=== PATIENT | female | born 2000 ===

== ENCOUNTER 2021-10-25 23:52 | Inpatient (IN) ==
[2021-10-26] MEDS ORDERED: ONDANSETRON 4 MG/2 ML VIAL IV PRN (00:53)
[2021-10-26] MEDS: LACTATED RINGERS 1,000 ML IV SCH ×2 (01:16→13:18)
[2021-10-26 01:30] LABS: Basophils % 0.2 % (0.0-0.8); Eosinophils # 0.1 10*3/uL (0.0-0.87); Eosinophils % 0.5 % (0.00-10.9); Hematocrit 32.9 VOL% (35.7-47.0); Immature Granulocytes % 0.4 %; Immature Granulocytes Absolute 0.04 #; Lymphocytes # 2.5 10*3/uL (1.4-4.0); Lymphocytes % 27.3 % (21.3-54.2); Mean Corpuscular HGB Conc 30.4 GM/DL (32-36); Mean Corpuscular Volume 73.9 FL (87-102); Monocytes % 6.2 % (1.7-12.7); Neutrophils % 65.4 % (38.7-73.9); Platelet Count 213 T/CUMM (130-400); Red Blood Count 4.45 MC/CUMM (3.8-5.5); Red Cell Distribution Width 15.2 % (9.3-17.3); White Blood Count 9.3 T/CUMM (4-12)
[2021-10-26 01:50] LABS: Alanine Aminotransferase < 9 U/L (13-56); Albumin 2.8 G/DL (3.4-5.0); Alkaline Phosphatase 172 U/L (45-117); Aspartate Amino Transferase 13 U/L (0-37); Blood Urea Nitrogen 9 MG/DL (7-18); Calcium 9.1 MG/DL (8.5-10.1); Carbon Dioxide 20 MMOL/L (21-32); Estimated Glom Filtration Rate 137 ML/MIN; Glucose 84 MG/DL (74-106); Osmolality,Calculated 270.8 MOS/KG (273-304); Potassium 3.6 MMOL/L (3.5-5.1); Sodium 137 MMOL/L (136-145)
[2021-10-26 02:40] LABS: Hepatitis B Surface Ag Quant 0.13 Index; Hepatitis B Surface Ag Result Non-Reactive (NonReactive)
[2021-10-26 02:57] LABS: HIV Antigen/Antibody Result Nonreactive (Nonreactive)
[2021-10-26] MEDS ORDERED: AMPICILLIN INJ 2,000 MG in SODIUM CHLORIDE 0.9% 100 ML IV ONE (04:00)
[2021-10-26] MEDS ORDERED: AMPICILLIN INJ 1,000 MG in SODIUM CHLORIDE 0.9% 100 ML IV SCH (08:00)
[2021-10-26] MEDS ORDERED: OXYTOCIN/LR 20 UNIT/1,000 ML BAG IV SCH (13:45)
[2021-10-26] MEDS ORDERED: FAMOTIDINE 20 MG/2 ML VIAL IV ONE (17:30)
[2021-10-26] MEDS ORDERED: PROMETHAZINE 25 MG/1 ML VIAL IM PRN (17:30)
[2021-10-26] MEDS ORDERED: CITRIC ACID/SODIUM CITRATE 30 ML UDCUP PO ONE (17:30)
[2021-10-26] MEDS ORDERED: LACTATED RINGERS 1,000 ML IV ONE (17:30)
[2021-10-26] MEDS ORDERED: MEPERIDINE 50 MG/1 ML VIAL IV ONE (17:30)
[2021-10-26] MEDS ORDERED: ePHEDrine 50 MG/ML VIAL IV PRN (17:30)
[2021-10-26] MEDS ORDERED: NALOXONE 0.4 MG/ML VIAL IV PRN (17:30)
[2021-10-26] MEDS ORDERED: diphenhydrAMINE 50 MG/1 ML VIAL IV PRN (17:30)
[2021-10-26] MEDS ORDERED: hydrOXYzine HCL 25 MG/1 ML VIAL IM PRN (17:30)
[2021-10-26] MEDS: fentaNYL 2 MCG/ROPIV 0.2% EPID 100 ML EPIDURAL SCH (18:38)
[2021-10-26 20:12] LABS: Mucus,Urine Occasional /LPF (Occasional); RBC,Urine 6 /HPF (0-4); Squamous Epithelial Cell,Urine Occasional /HPF (0-10)
[2021-10-26 20:13] LABS: Bilirubin,Urine Small mg/dL (Negative); Blood, Urine Trace mg/dL (Negative); Glucose,Urine (UA) Negative (Negative); Ketones,Urine >160 mg/dL (Negative); Nitrite,Urine Negative (Negative); Protein,Urine Trace mg/dL (Negative); Urine Appearance Clear (Clear); Urine Color Yellow (Yellow); Urine Specific Gravity 1.015 (1.001-1.035); Urine pH 6.5 (4.5-8.0)
[2021-10-27] MEDS: fentaNYL 2 MCG/ROPIV 0.2% EPID 100 ML EPIDURAL SCH (02:53)
[2021-10-27] MEDS ORDERED: miSOPROStoL 200 MCG TABLET ONE (08:47)
[2021-10-27] MEDS ORDERED: TRANEXAMIC ACID 1,000 MG/10 ML VIAL ONE (08:47)
[2021-10-27] MEDS ORDERED: METHYLERGONOVINE 0.2 MG/1 ML AMP ONE (08:48)
[2021-10-27] MEDS ORDERED: SODIUM CHLORIDE 0.9% 0 ML IV ONE (08:48)
[2021-10-27] MEDS ORDERED: CARBOPROST TROMETHAMINE 250 MCG/ML AMP IM ONE (08:48)
[2021-10-27] MEDS ORDERED: LIDOCAINE 1% 50 ML VIAL ONE (08:49)
[2021-10-27 09:48] LABS: Cord Arterial Blood HCO3 18.6 MMOL/L
[2021-10-27 09:50] LABS: Cord Venous Blood HCO3 18.2 MMOL/L; Cord Venous Blood PCO2 30.8 MMHG; Cord Venous Blood PO2 25.4 MMHG
[2021-10-27] MEDS ORDERED: MEASLES/MUMPS/RUBELLA VACCINE 0.5 ML VIAL SUBCUT ONE (14:11)
[2021-10-27] MEDS ORDERED: ONDANSETRON 4 MG/2 ML VIAL IV PRN (14:11)
[2021-10-27] MEDS ORDERED: WITCH HAZEL PADS 100/JAR TOP PRN (14:11)
[2021-10-27] MEDS ORDERED: ACETAMINOPHEN 325 MG TABLET PO PRN (14:11)
[2021-10-27] MEDS ORDERED: BISACODYL 10 MG SUPP RECTAL PRN (14:11)
[2021-10-27] MEDS ORDERED: LANOLIN 50% CREAM 0.3 OZ TUBE TOP PRN (14:11)
[2021-10-27] MEDS ORDERED: HYDROCORTISONE 2.5% RECTAL CREAM 30 GM TUBE TOP PRN (14:11)
[2021-10-27] MEDS ORDERED: BENZOCAINE 20%/MENTHOL 0.5% SPRAY 56 GM CAN TOP PRN (14:11)
[2021-10-27] MEDS ORDERED: oxyCODONE/ACETAMINOPHEN 5-325 MG TABLET PO PRN ×2 (14:11)
[2021-10-27] MEDS ORDERED: RHO(D) IMMUNE GLOBULIN 300 MCG SYRINGE IM ONE (14:11)
[2021-10-27] MEDS ORDERED: DIPH/TET/ACEL PERT BOOSTER VACCINE 0.5 ML VIAL IM ONE (14:11)
[2021-10-27] MEDS ORDERED: OXYTOCIN/LR 20 UNIT/1,000 ML BAG IV ONE (14:11)
[2021-10-27] MEDS: IBUPROFEN 800 MG TABLET PO PRN ×2 (15:27→22:09)
[2021-10-27] MEDS: DOCUSATE SODIUM 100 MG CAPSULE PO SCH (22:07)
[2021-10-28] MEDS: IBUPROFEN 800 MG TABLET PO PRN (05:13)
[2021-10-28 06:04] LABS: Basophils % 0.3 % (0.0-0.8); Eosinophils # 0.1 10*3/uL (0.0-0.87); Eosinophils % 0.5 % (0.00-10.9); Hematocrit 27.2 VOL% (35.7-47.0); Hemoglobin 8.4 GM/DL (12.0-16.0); Immature Granulocytes % 0.5 %; Immature Granulocytes Absolute 0.06 #; Lymphocytes # 2.7 10*3/uL (1.4-4.0); Lymphocytes % 22.5 % (21.3-54.2); Mean Corpuscular HGB Conc 30.9 GM/DL (32-36); Mean Corpuscular Volume 73.7 FL (87-102); Monocytes % 7.1 % (1.7-12.7); Neutrophils % 69.1 % (38.7-73.9); Platelet Count 160 T/CUMM (130-400); Red Blood Count 3.69 MC/CUMM (3.8-5.5); Red Cell Distribution Width 15.2 % (9.3-17.3); White Blood Count 11.9 T/CUMM (4-12)
[2021-10-28 06:29] LABS: Hypochromia 1+; Microcytosis 1+; Ovalocytes Slight; Platelet Estimate Adequate
[2021-10-28] MEDS: DOCUSATE SODIUM 100 MG CAPSULE PO SCH ×2 (08:30→21:33)
[2021-10-28] MEDS: FERROUS SULFATE 325 MG TABLET PO SCH (08:31)
[2021-10-29] MEDS: FERROUS SULFATE 325 MG TABLET PO SCH (08:55)
[2021-10-29] MEDS: DOCUSATE SODIUM 100 MG CAPSULE PO SCH (08:55)
[2021-10-29 09:33] VITALS: BP 114/70
== END 2021-10-29 12:35 | disposition home or self-care (01) | DRG 560 ==
LOC: N.LD 23:52 → N.OB 10-27 12:56
PROVIDERS: ADMIT Obstetrics & Gynecology; ATTEND Obstetrics & Gynecology